=== PATIENT | male | born 1960 | race Caucasian/White ===

== ENCOUNTER 2016-10-28 21:33 | Observation (INO) ==
[2016-10-28] MEDS ORDERED: Tdap (Boostrix) Vaccine 0.5 ML SYRINGE IM ONE (22:29)
--- NOTE | 2016-10-28 22:33 | Emergency Department Note ---
Disposition Clinical Impression: Swelling of joint, hand, right, Cellulitis of hand, Elevated blood pressure reading, Hypokalemia Cat bite Qualifiers: Encounter type: initial encounter Qualified Code(s): W55.01XA - Bitten by cat, initial encounter Disposition: Admitted As Inpatient Condition: Good Time of Disposition: 23:17 Animal Bite HPI - General Chief Complaint: ED Animal Bite Stated Complaint: cat bite// Right hand swollen Time Seen by Provider: 10/28/16 22:28 Source: patient Limitations: no limitations Nursing Notes Reviewed: Yes Vital Signs Reviewed: Yes - History of Present Illness Pt Subjective Complaint: animal bite Onset (ago): hour(s) Animal: cat Description of Animal: household pet Mechanism: bite, scratch Right: hand (right hand bite, left hand scratched) Context: provoked Associated symptoms: Reports: erythema, other (swelling) - Related Data Home Medications Medication Instructions Recorded Confirmed Bogdan 10-40 mg Tablet PO DAILY 10/29/16 Allergies Allergy/AdvReac Type Severity Reaction Status Date / Time No Known Allergies Allergy Verified 10/28/16 21:36 Constitutional: Reports: fever. Denies: chills Eyes: Denies: eye pain ENT ED: Denies: ear pain Cardiovascular: Denies: chest pain Respiratory: Denies: cough, dyspnea, wheezes Gastrointestinal: Denies: abdominal pain Genitourinary: Denies: dysuria Musculoskeletal: Denies: back pain Integumentary: Denies: rash Neurological: Denies: headache, weakness Endocrine: Denies: fatigue Hematological/Lymphatic: Denies: easy bleeding Allergic/Immunologic: Denies: facial swelling Past Medical History - Past Medical History Medical history: Reports: hypertension, renal disease Psychiatric history: Reports: no psych history - Social History Smoking Status: Never smoker Smokeless Tobacco Status: No Alcohol use: Reports: none Drug use: Reports: none Physical Exam - General Limitations: no limitations General appearance: alert, in no apparent distress - Head Head exam: normocephalic - Eye Eye exam: Present: EOMI - ENT ENT exam: normal oropharynx, mucous membranes moist - Neck Neck exam: Present: full ROM - Chest Chest inspection: Present: normal inspection, symmetric chest wall rise - Respiratory Respiratory exam: Present: normal lung sounds bilaterally. Absent: respiratory distress - Cardiovascular Cardiovascular exam: Present: regular rate, normal rhythm - Abdominal Exam Abdominal exam: Present: soft, Non-Tender - Extremities Exam Extremities exam: Present: normal capillary refill. Absent: full ROM - Expanded Upper Extremity Exam Shoulder exam: Present: normal inspection, full ROM Arm exam: Present: normal inspection, full ROM Elbow exam: Present: normal inspection, full ROM Forearm/Wrist exam: Present: normal inspection, full ROM Hand exam: Present: tenderness, swelling, other (puncture wounds over right MC joint of index finger and palm side; left hand abrasions consistent with scratches) Neuromotor exam: Normal: wrist extension, thumb opposition, thumb IP flexion, thumb adduction, fingers 2-5 abduction Neurosensory exam: Normal: 2-point discrimination Hand tendon exam: Normal: flexor digitorum profundus (location), flexor digitorum superficialis (location), extensor tendon (location) Vascular exam: Normal: capillary refill, radial pulse - Neurological Exam Neurological exam: Present: alert, oriented X3 - Psychiatric Psychiatric exam: Present: normal affect, normal mood - Skin Skin exam: Present: warm, dry, intact, normal color. Absent: rash, cyanosis, diaphoresis Course Course Narrative: Patient presents with worsening hand pain and swelling, After he was bit by his household cat earlier this morning. Imaging ordered. Analgesics declined. - Reevaluation(s) Reevaluation #1: Patient seen and examined. He does have significant tenderness and erythema over the proximal index finger of his right hand. No sensory deficits, no motor deficits, however limited range of motion due to pain. Some tenderness with passive range of motion. Concern for tenosynovitis. Augmentin. Tetanus update ordered. Discussed patient with Dr. Cornejo who also had paced to palpation and evaluated. He advised consult with orthopedics, Time: 22:44 Reevaluation #2: accepted by hospitalist Dr. Serrano. IV abx ordered. Time: 23:17 - Consultations Consultation #1: Orthopedist was paged, Dr. Zazueta did advise admission for IV Unasyn, and he will evaluate patient tomorrow. Time: 22:56 Vital Signs Temperature 98.1 F 10/28/16 21:36 Pulse Rate 69 10/28/16 21:36 Respiratory Rate 14 10/28/16 21:36 Blood Pressure 186/117 10/28/16 21:36 O2 Sat by Pulse Oximetry 96 10/28/16 21:36 Temperature 97.9 F 10/29/16 06:38 Pulse Rate 69 10/29/16 06:38 Respiratory Rate 18 10/29/16 06:38 Blood Pressure 145/81 10/29/16 06:38 O2 Sat by Pulse Oximetry 95 10/29/16 06:38 Oxygen Delivery Oxygen Delivery Room Air Animal Bite - MDM Narrative Medical decision making narrative: Itaol: I personally evaluated the patient with the APC and spent direct face -to-face time with the patient. The patient has what appears to be cat bite- induced cellulitis of the finger. We discussed the case with the orthopedist salesperson men's furnishings, and we will admit the patient to the medical service for any back therapy and orthopedic consultation. - Lab Data Result diagrams: 10/29/16 06:04 10/29/16 06:04 Lab Results 10/28/16 10/28/16 Range/Units 22:33 22:33 WBC 9.2 (4.3-11.1) K/mcL RBC 4.59 (4.19-5.50) M/mcL Hgb 14.2 (12.9-16.9) g/dL Hct 40.0 (37.5-50.1) % MCV 87.1 (83.0-100.0) fL MCH 30.9 (28.0-33.3) pg MCHC 35.5 (31.6-35.5) g/dL RDW 13.5 (11.5-14.5) % Plt Count 212 (140-400) K/mcL MPV 10.8 (9.4-12.4) fL Immature Gran % 0.1 (0-4) % Seg Neutrophils % 63.4 % Lymphocytes % 24.0 % Monocytes % 7.6 % Eosinophils % 4.0 % Basophils % 0.9 % Neutrophils # 5.8 (1.6-8.9) K/mcL Lymphocytes # 2.2 (0.6-4.6) K/mcL Monocytes # 0.7 (0.0-1.3) K/mcL Eosinophils # 0.4 (0.0-0.6) K/mcL Basophils # 0.1 (0.0-0.2) K/mcL Sodium 142 (136-145) mEq/L Potassium 3.0 L (3.5-4.5) mEq/L Chloride 106 (98-109) mEq/L Carbon Dioxide 24 (19-29) mEq/L BUN 18 (8-26) mg/dL Creatinine 1.41 H (0.72-1.25) mg/dL Est GFR ( Amer) > 60 (> 60) Est GFR (Non-Af Amer) 52 L (> 60) BUN/Creatinine Ratio 13 (6-26) Glucose 102 H (70-99) mg/dL Calculated Osmolality 296 (280-300) Calcium 9.0 (8.6-10.8) mg/dL Total Bilirubin 0.4 (0.2-1.2) mg/dL AST 21 (5-34) Units/L ALT 25 (0-55) Units/L Alkaline Phosphatase 124 (38-126) Units/L Serum Total Protein 7.3 (6.0-8.3) g/dL Albumin 4.2 (3.5-5.0) g/dL Globulin 3.1 (2.4-3.5) g/dL Albumin/Globulin Ratio 1.4 (1.1-2.2)
[2016-10-28 22:53] LABS: Basophils # 0.1 K/mcL (0.0-0.2); Basophils % 0.9 %; Eosinophils # 0.4 K/mcL (0.0-0.6); Hemoglobin 14.2 g/dL (12.9-16.9); Immature Granulocytes % 0.1 % (0-4); Lymphocytes # 2.2 K/mcL (0.6-4.6); Mean Corpuscular HGB Conc 35.5 g/dL (31.6-35.5); Mean Corpuscular Hemoglobin 30.9 pg (28.0-33.3); Mean Corpuscular Volume 87.1 fL (83.0-100.0); Mean Platelet Volume 10.8 fL (9.4-12.4); Monocytes # 0.7 K/mcL (0.0-1.3); Monocytes % 7.6 %; Neutrophils # 5.8 K/mcL (1.6-8.9); Platelet Count 212 K/mcL (140-400); Red Blood Count 4.59 M/mcL (4.19-5.50); Red Cell Distribution Width 13.5 % (11.5-14.5); Segmented Neutrophils % 63.4 %
[2016-10-28] MEDS ORDERED: 0.9 % Sodium Chloride 250 ML ONE (23:14)
[2016-10-28 23:20] LABS: Alanine Aminotransferase 25 Units/L (0-55); Albumin 4.2 g/dL (3.5-5.0); Albumin/Globulin Ratio 1.4 (1.1-2.2); Alkaline Phosphatase 124 Units/L (38-126); Aspartate Amino Transferase 21 Units/L (5-34); BUN/Creatinine Ratio 13 (6-26); Bilirubin,Total 0.4 mg/dL (0.2-1.2); Blood Urea Nitrogen 18 mg/dL (8-26); Carbon Dioxide 24 mEq/L (19-29); Chloride 106 mEq/L (98-109); Globulin 3.1 g/dL (2.4-3.5); Glucose 102 mg/dL (70-99); Osmolality,Calculated 296 (280-300); Sodium 142 mEq/L (136-145); Total Protein 7.3 g/dL (6.0-8.3); eGFR For African Americans > 60 (> 60); eGFR For Non-African Americans 52 (> 60)
[2016-10-29] MEDS ORDERED: Naloxone 0.4 MG/ML INJ IVP PRN (00:13)
[2016-10-29] MEDS ORDERED: Ondansetron ODT 4 MG TAB.RAPDIS SL PRN (00:13)
[2016-10-29] MEDS ORDERED: *HR* Morphine 2 MG/ML SYRINGE IVP PRN (00:13)
[2016-10-29] MEDS ORDERED: Acetaminophen 325 MG TABLET PO PRN (00:13)
[2016-10-29] MEDS ORDERED: *HR* HYDROcodone/Acet 5/325 mg TABLET PO PRN (00:13)
[2016-10-29] MEDS ORDERED: 0.9 % Sodium Chloride 1,000 ML IVC SCH (00:15)
--- NOTE | 2016-10-29 03:09 | Internal Med History&Physical ---
<Roxann Elder - Last Filed: 10/29/16 03:56> Date of Encounter: 10/29/16 Time of Encounter: 03:09 Assessment and Plan (1) Cat bite Current visit: Yes Status: Acute Patient with cat bite to right hand. Will give IV antibiotics. Dr. Zazueta agreed to consult on patient. 1. Consult to ortho surgery for evaluation and possible washout 2. NPO at midnight 3. IV unasyn every 6 hours 4. Bacitractin topical for scratches. 5. Ice and pain management Qualifiers: Encounter type: initial encounter Qualified Code(s): W55.01XA - Bitten by cat, initial encounter (2) Hypertension Current visit: Yes Status: Acute Patient with history of HTN. Will continue home meds and monitor. Qualifiers: Hypertension type: essential hypertension Qualified Code(s): I10 - Essential (primary) hypertension (3) Creatinine elevation Current visit: Yes Status: Acute Elevated creatinine. Patient reports he is supposed to see nephrology in a couple weeks for evaluation. Will monitor creatinine. (4) DVT prophylaxis Current visit: Yes Status: Acute SCDs for DVT prophylaxis until decisions made by ortho surgery. Internal Medicine - H&P: HPI Chief complaint: Bite from cat Admitted From: Emergency Dept Plans for Post Hospital Care: Home History of present illness: Mr. Ortega is a 56yo male with PMH including HTN and renal disease. Patient was home and tried to apple picker his cat when it scratched and bite him. He has multiple scratchs over his left wrist and a bite over his right first finger. He states that he cleaned the wounds with antibacterial soap. He say then he finger became more and more swollen, painful and harder to move so he came to the ED. Patient denies any fevers or chills. Remainder of ROS negative. In the ED, patient was afebrile. Blood pressure elevated but remainder of vital signs within normal limits. Labs revealed no leukocytosis. Potassium level III.0 in creatinine high 1.41. An x-ray revealed right index finger soft tissue swelling. Dr. Zazueta called from the ED due to concern for tenosynovitis. He recommended IV Unasyn, admission and will evaluate tomorrow. On exam, patient is awake and alert, no acute distress. She has multiple scratches over the inside of his affairs. Patient has 3 puncture wounds on his right 1st finger. The area of the 1st finger around the MCP and PIP joints is erythematous, swollen, and warm. Areas tended to palpation Patient has decreased movement of his right 1st finger. Movement of remainder failures is intact. Capillary refill is intact on all fingers. Remainder of exam benign. Past Med Surg Social Fam HX - Past Medical History Medical history: hypertension, renal disease Psychiatric history: no psych history - Past Surgical History Surgical History: other - Social History Smoking Status: Never smoker Smokeless Tobacco Status: No Alcohol use: none Drug use: none Internal Medicine - H&P: Meds Bogdan 10-40 mg Tablet PO DAILY 10/29/16 [History] Allergies No Known Allergies Allergy (Verified 10/28/16 21:36) All Systems PM: A 10-system review of systems was performed and is negative for pertinent findings except as documented above in the HPI. - Constitutional Constitutional: no chills, no fever(s), no lethargy - EENT Eyes: no change in vision - Cardiovascular Cardiovascular ROS IM: no chest pain - Respiratory Respiratory: no cough, no dyspnea, no dyspnea on exertion, no wheezing - Gastrointestinal Gastrointestinal: no abdominal pain, no constipation, no diarrhea, no nausea, no vomiting - Genitourinary Genitourinary ROS male: no difficulty urinating - Musculoskeletal Additional comments: right first finger pain and swelling. - Integumentary Additional comments: Scratches over left wrist. 3 small puncture wounds on right first finger with surrounding erythema and swelling - Constitutional Vitals: Temp Pulse Resp BP Pulse Ox 97.8 F 72 20 172/112 95 10/29/16 00:38 10/29/16 00:38 10/29/16 00:38 10/29/16 00:38 10/29/16 00:38 General appearance: Present: A&O X 3, no acute distress, answers questions appropriately - Head Head exam: Present: atraumatic, normal inspection, normocephalic - Eye Eye exam: Present: EOMI, normal appearance, PERRL - ENT ENT exam: Present: mucous membranes moist - Respiratory Respiratory exam: Present: CTAB. Absent: rales, rhonchi, wheezes - Cardiovascular Cardiovascular exam: Present: RRR - GI/Abdominal GI/Abdominal exam: Present: soft. Absent: guarding, rebound, rigid, tenderness - Extremities Exam Additional comments: Scratches over left wrist. 3 small puncture wounds on right first finger with surrounding erythema, swelling and tenderness. - Neurological Exam Neurological exam: Present: alert, CN II-XII intact, oriented X3, no focal deficits Internal Med - H&P Results - Labs CBC & Chem 7: 10/28/16 22:33 10/28/16 22:33 <Zachwilberto - Last Filed: 10/29/16 04:13> Date of Encounter: 10/29/16 Time of Encounter: 12:45 Assessment and Plan (1) Cellulitis of hand Current visit: Yes Status: Acute Cellulitis of right hand due to cat bite. Will treat with IV antibiotics. Consult orthopedics for surgical evaluation. Follow blood culture results. (2) Cat bite Current visit: Yes Status: Acute Qualifiers: Encounter type: initial encounter Qualified Code(s): W55.01XA - Bitten by cat, initial encounter (3) Chronic renal disease Current visit: Yes Status: Chronic Recent has chronic kidney disease stage III. Creatinine is at baseline. Qualifiers: Chronic kidney disease stage: stage 3 (moderate) Qualified Code(s): N18.3 - Chronic kidney disease, stage 3 (moderate) (4) Hypertension Current visit: Yes Status: Acute Qualifiers: Hypertension type: essential hypertension Qualified Code(s): I10 - Essential (primary) hypertension Internal Medicine - H&P: HPI Admitted From: Emergency Dept Plans for Post Hospital Care: Home History of present illness: I examined this patient and my medical decision-making was reviewed with the Resident Physician. I agree with the documented history of present illness, review of systems, past medical, surgical social and family histories and examination findings, disposition and treatment plan as described above except to any changes set forth below. Mr. Ortega is a year old male with history of hypertension and chronic kidney disease into the ER after being bitten by his cat. He has since developed swelling at the site of bite on his right hand at the base of the first finger. He denies any fever or chills but he is unable to extend his fingers at the proximal interphalangeal joint. All Systems PM: A 10-system review of systems was performed and is negative for pertinent findings except as documented above in the HPI. - Constitutional Vitals: Temp Pulse Resp BP Pulse Ox 97.8 F 72 20 172/112 95 10/29/16 00:38 10/29/16 00:38 10/29/16 00:38 10/29/16 00:38 10/29/16 00:38 General appearance: Present: cooperative, mild distress, A&O X 3, answers questions appropriately - Eye Eye exam: Present: PERRL, conjuntiva pink, sclera anicteric - Neck Neck exam general surgery: Present: supple, trachea midline. Absent: lymphadenopathy - Respiratory Respiratory exam: Present: CTAB. Absent: accessory muscle use, rales, rhonchi, wheezes - Cardiovascular Cardiovascular exam: Present: RRR, +S1, +S2. Absent: diastolic murmur, gallop, rubs, systolic murmur - GI/Abdominal GI/Abdominal exam: Present: normal bowel sounds, soft, no peritoneal signs. Absent: distended, tenderness - Extremities Exam Extremities exam: Present: warm, radial pulses palpable and symetrical. Absent : calf tenderness, cyanotic, pedal edema Additional comments: scratches present over both hands. Puncture wounds to the right first finger present with erythema and swelling at the base of the first proximal interphalangeal joint. - Neurological Exam Neurological exam: Present: CN II-XII intact, oriented X3, no focal deficits. Absent: facial droop, speech deficit - Skin Skin exam: Present: dry, erythema (As described above), intact Internal Med - H&P Results - Labs CBC & Chem 7: 10/28/16 22:33 10/28/16 22:33 - Attending Attestation This document has been at least partially created by [email or web address] recognition technology by Dr. Serrano. Errors in grammar, wording or other phrases may exist. If errors are found after the documentation is signed, they will be addressed individually in the addendum section of this document when appropriate.
[2016-10-29] MEDS: Ampicillin/Sulbactam 1,500 MG in 0.9 % Sodium Chloride Mini Bag 100 ML IVPB SCH ×4 (05:25→18:02)
[2016-10-29] MEDS: *HR* Heparin 5,000 UNIT/ML VIAL SQ SCH ×2 (05:25→18:01)
[2016-10-29 06:19] LABS: Basophils # 0.1 K/mcL (0.0-0.2); Basophils % 0.7 %; Eosinophils # 0.3 K/mcL (0.0-0.6); Hematocrit 36.6 % (37.5-50.1); Hemoglobin 13.1 g/dL (12.9-16.9); Immature Granulocytes % 0.3 % (0-4); Immature Platelets 4.9 % (1.1-6.1); Lymphocytes # 1.5 K/mcL (0.6-4.6); Lymphocytes % 20.9 %; Mean Corpuscular HGB Conc 35.8 g/dL (31.6-35.5); Mean Corpuscular Hemoglobin 30.6 pg (28.0-33.3); Mean Corpuscular Volume 85.5 fL (83.0-100.0); Mean Platelet Volume 10.8 fL (9.4-12.4); Monocytes # 0.6 K/mcL (0.0-1.3); Neutrophils # 4.9 K/mcL (1.6-8.9); Platelet Count 201 K/mcL (140-400); Red Blood Count 4.28 M/mcL (4.19-5.50); Red Cell Distribution Width 13.4 % (11.5-14.5); Segmented Neutrophils % 66.1 %
[2016-10-29 06:30] LABS: INR 1.2; Prothrombin Time 12.7 Seconds (9.4-12.1)
[2016-10-29 06:33] LABS: Activated Partial Thrombo Time 28.8 Seconds (26.0-36.0)
[2016-10-29 06:34] LABS: BUN/Creatinine Ratio 13 (6-26); Blood Urea Nitrogen 16 mg/dL (8-26); Calcium 8.4 mg/dL (8.6-10.8); Carbon Dioxide 25 mEq/L (19-29); Chloride 109 mEq/L (98-109); Glucose 111 mg/dL (70-99); Osmolality,Calculated 300 (280-300); Potassium 2.8 mEq/L (3.5-4.5); Sodium 144 mEq/L (136-145); eGFR For African Americans > 60 (> 60); eGFR For Non-African Americans > 60 (> 60)
[2016-10-29] MEDS ORDERED: Potassium Chloride 40 MEQ, Lidocaine 1% 2 ML in D5% in Water 500 ML IVPB SCH (10:00)
[2016-10-29 10:44] LABS: C-Reactive Protein 7 mg/L (Less than 5)
[2016-10-29] MEDS ORDERED: Potassium Chloride Elixir 20 MEQ/15 ML UDC PO SCH (13:30)
[2016-10-29] MEDS ORDERED: Metoprolol XL (24 HR) Succ 25 MG TAB.ER.24H PO SCH (14:30)
[2016-10-29] MEDS ORDERED: amLODIPine 5 MG TABLET PO SCH (14:30)
[2016-10-29] MEDS ORDERED: Valsartan 160 MG TABLET PO SCH (14:45)
--- NOTE | 2016-10-29 15:23 | Orthopedic Consult Note ---
Date of Encounter: 10/29/16 Time of Encounter: 08:10 Assessment and Plan (1) Cat bite Current Visit: Yes Status: Acute Recommend the use of IV Unasyn. Qualifiers: Encounter type: initial encounter Qualified Code(s): W55.01XA - Bitten by cat, initial encounter (2) Cellulitis of hand Current Visit: Yes Status: Acute Cellulitis of right hand due to cat bite. Elevation of right hand. Patient instructed on doing range of motion exercises of the digits including the index finger. The patient has responded well to IV antibiotics. He should be able to go home tonight and continue on Augmentin. We will have the patient follow-up in my office at the end of the week with Sammie Mahmood PA-C. History of Present Illness Chief complaint: Right-hand cat bite HPI: Mr. Ortega is a 55 year old right hand dominant male who sustained a cat bite to his right hand at the base of the index finger with multiple scratches, yesterday morning. The patient came in with significant pain and difficulty in his index finger last night. He was admitted for IV antibiotics last night. He states it feels better today and the pain is much improved. Past Med Surg Social Fam HX - Past Medical History Medical history: hypertension, renal disease Psychiatric history: no psych history - Past Surgical History Surgical History: other - Social History Smoking Status: Never smoker Smokeless Tobacco Status: No Alcohol use: none Drug use: none Medications and Allergies Amlodipine Bes/Olmesartan Med [Bogdan 10-40 mg Tablet] 1 tab PO DAILY 10/29/16 [ History] Metoprolol XL (24 HR) Succ [Toprol XL] 25 mg PO DAILY 10/29/16 [History] Allergies No Known Allergies Allergy (Verified 10/28/16 21:36) All Systems Reviewed: A 10-system review of systems was performed and is negative for pertinent findings except as documented above in the HPI. Physical Exam - Constitutional Vitals: Temp Pulse Resp BP Pulse Ox 98.3 F 77 20 162/90 93 10/29/16 15:12 10/29/16 15:12 10/29/16 15:12 10/29/16 15:12 10/29/16 15:12 - Wrist & Hand right Location of pain: volar hand, index finger Wrist pain modifiers: with motion Wound/scarring location: Puncture wounds at the base of the index finger on the dorsal and palmar nassar Tenderness with palpation: volar hand (The patient is tender at the volar puncture wound which is located at the A1 darby level next finger. He has mild tenderness tendon sheath. There is minimal swelling. He is able to flex the finger but with some pain limiting his motion. Mild discomfort with passive stretch.), index finger Results - Labs Result Diagrams: 10/29/16 06:04 10/29/16 06:04 Labs: Abnormal lab results Hct 36.6 % (37.5-50.1) L 10/29/16 06:04 MCHC 35.8 g/dL (31.6-35.5) H 10/29/16 06:04 PT 12.7 Seconds (9.4-12.1) H 10/29/16 06:04 Potassium 2.8 mEq/L (3.5-4.5) L 10/29/16 06:04 Glucose 111 mg/dL (70-99) H 10/29/16 06:04 Calcium 8.4 mg/dL (8.6-10.8) L 10/29/16 06:04 C-Reactive Protein 7 mg/L (Less than 5) H 10/29/16 06:04 H & H 10/29/16 Range/Units 06:04 Hgb 13.1 (12.9-16.9) g/dL Hct 36.6 L (37.5-50.1) % All other labs normal. Consult Discharge Plan - Plan Referrals: Chun Christensen MD [Primary Care Provider] -
--- NOTE | 2016-10-29 17:24 | Discharge Summary ---
Date of Encounter: 10/30/16 Time of Encounter: 17:21 - Discharge Diagnosis (1) Cat bite Priority: Primary Status: Acute Qualifiers: Encounter type: initial encounter Qualified Code(s): W55.01XA - Bitten by cat, initial encounter (2) Cellulitis of hand Priority: Primary Status: Acute (3) Hypokalemia Priority: Primary Status: Acute - Discharge Medications Prescriptions: HYDROcodone/Acet 5/325 mg [[place] 5-325 mg] 1 tab PO Q4HR PRN #20 tablet PRN Reason: Moderate Pain (4-6) Amoxicillin/Clavulanate [Augmentin] 875 mg PO BIDWM #14 tablet Potassium Chloride Elixir [Potassium Chloride] 40 meq PO DAILY #5 udc Home Medications: Amlodipine Bes/Olmesartan Med [Bogdan 10-40 mg Tablet] 1 tab PO DAILY 10/29/16 [ History] Amoxicillin/Clavulanate [Augmentin] 875 mg PO BIDWM #14 tablet 10/29/16 [Rx] HYDROcodone/Acet 5/325 mg [[place] 5-325 mg] 1 tab PO Q4HR PRN #20 tablet [Rx] Metoprolol XL (24 HR) Succ [Toprol Xl] 25 mg PO DAILY 10/29/16 [History] Potassium Chloride Elixir [Potassium Chloride] 40 meq PO DAILY #5 udc 10/29/16 [ Rx] Allergies/Adverse Reactions: Allergies No Known Allergies Allergy (Verified 10/28/16 21:36) Date of admission: 10/28/16 23:23 Primary care physician: Chun Christensen MD Consults: 10/29/16 00:14 Consult to Orthopedic Surgery [CONS] Routine Consulting Provider: [facility] Reason for Consult: Patient with cat bite to right first finger now with swelling, pain, decreased ROM. Consult called to Dr. Zazueta by ED physician. Call Completed: Yes Discharging clinician: Citlalli Lerner Anticipated date of discharge: 10/29/16 - Patient Status Disposition: Home, Self-Care Condition: Fair Functional capacity at discharge: independent ambulation Overall status at discharge: patient is progressing back to baseline - Discharge Instructions Instructions: Cellulitis (DC), Chronic Hypertension (DC) Follow Up With: Chun Christensen MD [Primary Care Provider] - Pedro Zazueta MD [Partnered Physician] - - Diet and Activity Activity: resume usual activities as tolerated Diet: advance to your usual diet Interval History: Mr. Ortega is a 55 year old right hand dominant male who sustained a cat bite to his right hand at the base of the index finger with multiple scratches, yesterday morning. The patient came in with significant pain and difficulty in his index finger last night. He was admitted for IV antibiotics last night. He states it feels better today and the pain is much improved. he is being dc with oral antibiotics he was seen by ortho as inpatient. Hospital course: Mr. Ortega is a year old male Time spent discussing smoking cessation with patient: more than 10 minutes - Time Spent with Patient Total time spent providing and/or coordinating discharge services: Greater than 30 minutes - Constitutional Vitals: Temp Pulse Resp BP Pulse Ox 98.3 F 77 20 162/90 93 10/29/16 15:12 10/29/16 15:12 10/29/16 15:12 10/29/16 15:12 10/29/16 15:12 General appearance: Present: cooperative, A&O X 3, answers questions appropriately Exam: - Head Head exam: Present: atraumatic, normal inspection, normocephalic - Eye Eye exam: Present: EOMI, normal appearance, PERRL - ENT ENT exam: Present: mucous membranes moist - Respiratory Respiratory exam: Present: CTAB. Absent: rales, rhonchi, wheezes - Cardiovascular Cardiovascular exam: Present: RRR - GI/Abdominal GI/Abdominal exam: Present: soft. Absent: guarding, rebound, rigid, tenderness - Extremities Exam Additional comments: Scratches over left wrist. 3 small puncture wounds on right first finger with surrounding erythema, swelling and tenderness. - Neurological Exam Neurological exam: Present: alert, CN II-XII intact, oriented X3, no focal deficits - VTE Documentation of Mechanical Device: Intermittent pneumatic compression device
[2016-10-29 20:50] VITALS: BP 161/88
[2016-10-29 20:55] LABS: Potassium 3.5 mEq/L (3.5-4.5)
[2016-10-29 21:03] LABS: BUN/Creatinine Ratio 12 (6-26); Blood Urea Nitrogen 16 mg/dL (8-26); Calcium 8.7 mg/dL (8.6-10.8); Carbon Dioxide 24 mEq/L (19-29); Chloride 107 mEq/L (98-109); Glucose 106 mg/dL (70-99); Osmolality,Calculated 298 (280-300); Sodium 143 mEq/L (136-145); eGFR For African Americans > 60 (> 60); eGFR For Non-African Americans 56 (> 60)
== END 2016-10-29 22:10 | disposition home or self-care (01) ==
LOC: EMEROO 21:33 → 3NENU 21:33
PROVIDERS: ADMIT Internal Medicine; ATTEND Internal Medicine Endocrinology, Diabetes & Metabolism